=== PATIENT | male | born 1995 | race Two or more races ===

== ENCOUNTER 2020-09-15 13:49 | Emergency (ER) | payer SELFPAY ==
[2020-09-15 14:02] VITALS: BP 129/84; PULSE 95; RESP 16; TEMP 36.9; O2SAT 97; BMI 30.9
--- NOTE | 2020-09-15 15:50 | ED.EYEPROB ---
HPI - Eye Problem General Chief complaint: Eye Problems Stated complaint: eye pain Time Seen by Provider: 09/15/20 15:21 Source: patient Mode of arrival: ambulatory Limitations: no limitations History of Present Illness HPI Narrative: Patient here with right lower eyelid swelling and pain with redness for about 2-3 weeks. No vision changes. He has had some intermittent drainage in the eye. Related Data Previous Rx's Medication Instructions Recorded doxycycline monohydrate 100 mg 100 mg PO BID #14 tab 09/15/20 tablet Allergies Allergy/AdvReac Type Severity Reaction Status Date / Time No Known Allergies Allergy Unverified 11/05/19 16:17 Review of Systems Review of Systems: Yes all other systems are reviewed and are negative Constitutional: Constitutional: Reports no additional constitutional complaints, Denies body ache(s), Denies chills, Denies fever(s), Denies headache(s) and Denies weakness Eyes: Eyes: Reports no additional eye complaints, Denies change in vision, Reports eye discharge, Denies eye pain and Denies photophobia Comments: eyelid swelling ENT: Reports system reviewed and no additional complaints, except as documented, Denies dizziness, Denies headache(s), Denies nasal congestion, Denies nasal discharge and Denies neck pain Cardiovascular: Cardiovascular: Reports no additional cardiovascular complaints, Denies chest pain, Denies leg edema and Denies dyspnea Respiratory: Respiratory: Reports no additional respiratory complaints, Denies cough and Denies dyspnea Gastrointestinal: Gastrointestinal: Reports no additional gastrointestinal complaints, Denies abdominal pain, Denies diarrhea, Denies nausea and Denies vomiting Genitourinary: Genitourinary: Denies urinary incontinence Musculoskeletal: Musculoskeletal: Reports no additional musculoskeletal complaints, Denies back pain, Denies arthralgias, Denies joint swelling, Denies neck pain, Denies numbness and Denies tingling Integumentary/Breasts: Skin/Breast: Reports system reviewed and no additional complaints, except as docu and Denies rash Neurologic: Reports system reviewed and no additional complaints, except as documented, Denies Abnormal speech present, Denies dizziness, Denies headache(s), Denies numbness, Denies tingling and Denies weakness PMFSH Past Medical History Attestation statement: The following information was validated with the patient. Source: old records reviewed and nursing notes reviewed Medical History No known health problems Social History Social History Advance Directives: No Advance Directives Information Provided: No Physical Exam Vital Signs: Vital Signs: Last Vital Signs Temp 98.4 F 09/15/20 14:02 Pulse 95 09/15/20 14:02 Resp 16 09/15/20 14:02 BP 129/84 09/15/20 14:02 Pulse Ox 97 09/15/20 14:02 Body Mass Index 30.9 Const: General: cooperative, healthy appearing, comfortable and no acute distress Orientation/consciousness: patient oriented x3 Limitations: no limitations HENMT: Head: Yes normal to inspection Ears: hearing grossly normal bilaterally General nose exam: Normal external nose present Face and sinus: Yes normal facial exam Mouth: Normal oral and palatal mucosa present Throat: Yes posterior oropharynx normal Eyes: General: appearance normal, both eyes and all related structures Visual Cheung: normal visual cheung by confrontation Alignment and Position: alignment normal Periorbital: periorbital findings normal Eyelids: Yes eyelid abnormality (To the R lower eyelid- internal stye with pointing/swelling/tende) Conjunctivae: conjunctival abnormal (mild injection right ) Sclerae: sclerae normal Corneas: corneas normal Pupils: Equal, round and reactive pupils present EOM: EOMs intact bilaterally Direct Ophthalmoscopy: normal light reflex, no photophobia and No photophobia Neck: Neck: Yes normal visual inspection Chest: Chest palpation & inspection: normal inspection of the chest Resp: Effort & Inspection: normal respiratory effort Auscultation: clear to auscultation bilaterally Cardio: Rate: regular rate Rhythm: regular rhythm Peripheral pulses: Peripheral pulses 2+ throughout GI: Inspection: Yes normal to inspection Palpation (GI): Soft to palpation and nontender Auscultation: normal bowel sounds Back/Spine/Pelvis: Thoracic/Lumbar Spine: thoracic and lumbar spine normal to inspection Skin: General skin exam: no rashes or lesions noted Neuro: General: patient oriented x3, no focal motor deficits and normal sensation to monofilament Cranial nerves: Yes Equal, round and reactive pupils present Cognition (Neuro): normal cognition Speech: No Abnormal speech present Gait exam (Neuro): Normal gait present Motor exam (neuro): 5/5 motor strength present throughout Extrem: General: Yes normal to inspection Course Course Course Narrative: R internal stye. Normal eye exam. A 18g needle was used to peres the stye with drainage expressed. Will start antibiotic ointment, oral antibiotics Recommended warm compresses and massage. Reviewed worrisome signs and symptoms and when to return to the emergency department. Comfortable discharge home. MDM - Eye Problem Medical Records Attestation: I reviewed the patient's medical records. Lab Data Attestation: I reviewed the patient's lab results. 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 You may call first to double check the quiroga Prescriptions: New doxycycline monohydrate 100 mg tablet 100 mg PO BID Qty: 14 RF: 0 Referrals: Physician,None [Primary Care Provider] - 2 days Interventions: ED Discharge Assessment Last Done: 09/15/20 16:27 Discharge Date/Time: 09/15/20 16:28
[2020-09-15] MEDS: Erythromycin Base 0.5% Oph Oin 1 GM TUBE 1 CM EYE-RIGHT ×2 (16:24→16:25)
== END 2020-09-15 16:28 | disposition home or self-care (01) ==
PROVIDERS: Emergency Provider Emergency Medicine
DX: H00.012 Hordeolum externum right lower eyelid (principal); Z79.899 Other long term (current) drug therapy
CPT/HCPCS: 99283

== ENCOUNTER 2021-04-11 13:14 | Emergency (ER) | payer OTHER, SELFPAY ==
--- NOTE | ~2021-04-11 | XR_ITS ---
EXAMINATION: BILATERAL HAND AND RIGHT KNEE. CLINICAL INFORMATION: Pain, swelling after bowling. Finger pain. COMPARISON: None TECHNIQUE: 3 views each hand. Right knee 4 views. FINDINGS: Right knee: The tricompartment joint space is maintained normal. No bony erosive changes or loose bodies. There is mild suprapatellar joint effusion. No acute fracture or dislocation seen. Right hand: There is no visible acute fracture, dislocation or subluxation seen. Especially there is no abnormality involving the second digit distal phalanx. Left hand: No visible acute fracture, dislocation or subluxation. Especially as no abnormality involving the distal phalanx fourth digit. The soft tissues are normal. XR/XR hand RT min 3V IMPRESSION: Unremarkable bilateral hand exam. Unremarkable right knee exam.
--- NOTE | ~2021-04-11 | XR_ITS ---
EXAMINATION: BILATERAL HAND AND RIGHT KNEE. CLINICAL INFORMATION: Pain, swelling after bowling. Finger pain. COMPARISON: None TECHNIQUE: 3 views each hand. Right knee 4 views. FINDINGS: Right knee: The tricompartment joint space is maintained normal. No bony erosive changes or loose bodies. There is mild suprapatellar joint effusion. No acute fracture or dislocation seen. Right hand: There is no visible acute fracture, dislocation or subluxation seen. Especially there is no abnormality involving the second digit distal phalanx. Left hand: No visible acute fracture, dislocation or subluxation. Especially as no abnormality involving the distal phalanx fourth digit. The soft tissues are normal. XR/XR hand LT min 3V IMPRESSION: Unremarkable bilateral hand exam. Unremarkable right knee exam.
--- NOTE | ~2021-04-11 | XR_ITS ---
EXAMINATION: BILATERAL HAND AND RIGHT KNEE. CLINICAL INFORMATION: Pain, swelling after bowling. Finger pain. COMPARISON: None TECHNIQUE: 3 views each hand. Right knee 4 views. FINDINGS: Right knee: The tricompartment joint space is maintained normal. No bony erosive changes or loose bodies. There is mild suprapatellar joint effusion. No acute fracture or dislocation seen. Right hand: There is no visible acute fracture, dislocation or subluxation seen. Especially there is no abnormality involving the second digit distal phalanx. Left hand: No visible acute fracture, dislocation or subluxation. Especially as no abnormality involving the distal phalanx fourth digit. The soft tissues are normal. XR/XR knee RT 4V IMPRESSION: Unremarkable bilateral hand exam. Unremarkable right knee exam.
[2021-04-11 14:23] VITALS: BP 138/84; PULSE 85; RESP 18; TEMP 36.9; O2SAT 98; BMI 29.7
[2021-04-11 14:40] LABS: Hematocrit 44.4 % (42.0-52.0); Hemoglobin 15.7 g/dl (14.0-18.0); Mean Corpuscular HGB Conc 35.4 g/dl (31.0-36.0); Mean Corpuscular Hemoglobin 31.2 pg (27.0-33.0); Mean Corpuscular Volume 88.1 fL (80.0-98.0); Mean Platelet Volume 8.8 fL (9.4-12.4); Platelet Count 153 X10*3/uL (160-400); Red Blood Count 5.04 X10*6/uL (4.60-5.80); Red Cell Distribution Width 12.2 % (11.0-16.0)
[2021-04-11 15:07] LABS: Anion Gap 9 (12-20); Blood Urea Nitrogen 12 mg/dL (9-16); Calcium 9.1 mg/dL (8.4-10.2); Carbon Dioxide 28 mmol/L (22-29); Chloride 106 mmol/L (96-108); Estimated Glomerular Filt Rate > 60; Glucose Random 107 mg/dL (60-115); Potassium 4.2 mmol/L (3.3-5.1); Sodium 139 mmol/L (135-145)
--- NOTE | 2021-04-11 15:53 | ED.GENADULT ---
HPI - General Adult General Chief complaint: Extremity Problem Stated complaint: Swollen Fingers Time Seen by Provider: 04/11/21 15:03 Source: patient Mode of arrival: ambulatory Limitations: no limitations History of Present Illness HPI narrative: Patient is a 25 year old male presenting to the emergency department today with swelling and pain to the right index finger, left ring finger, and right knee. Patient states that his right knee always bothers him as he had a previous fracture in it. Patient states that he isn't sure what happened to his fingers but they are swollen and hurt. Patient denies any dizziness, lightheadedness, abdominal pain, nausea, vomiting, fever, chills, blurry vision, double vision, loss of vision, chest pain, difficulty breathing, shortness of breath, back pain, night sweats, pain with urination, increased urinary frequency, increased urinary urgency, blood in his urine or stool, syncope or a near syncopal episode, recent trauma or falls, bowel incontinence, bladder incontinence, bowel retention, bladder retention, or any other complaints at this time. Onset (ago): day(s) Related Data Previous Rx's Medication Instructions Recorded doxycycline monohydrate 100 mg 100 mg PO BID #14 tab 09/15/20 tablet doxycycline hyclate 100 mg capsule 100 mg PO BID 7 Days #14 cap 04/11/21 Allergies Allergy/AdvReac Type Severity Reaction Status Date / Time No Known Allergies Allergy Unverified 11/05/19 16:17 Review of Systems Constitutional: Constitutional: Reports no additional constitutional complaints, Denies chills, Denies fever(s) and Denies night sweats Eyes: Eyes: Reports no additional eye complaints, Denies blurry vision, Denies change in vision, Denies diplopia, Denies eye discharge, Denies loss of vision and Denies eye pain ENT: Denies dizziness Cardiovascular: Cardiovascular: Reports no additional cardiovascular complaints, Denies chest pain, Denies lightheadedness, Denies Loss of Consciousness and Denies dyspnea Respiratory: Respiratory: Reports no additional respiratory complaints and Denies dyspnea Gastrointestinal: Gastrointestinal: Reports no additional gastrointestinal complaints, Denies abdominal pain, Denies melena, Denies hematochezia, Denies change in bowel habits and Denies change in stool character Genitourinary: Genitourinary: Reports no additional male genitourinary complaints, Denies hematuria, Denies oliguria, Denies difficulty urinating, Denies dysuria, Denies urinary frequency, Denies urinary hesitancy, Denies urinary incontinence and Denies urinary urgency Musculoskeletal: Musculoskeletal: Reports no additional musculoskeletal complaints, Denies numbness and Denies tingling Integumentary/Breasts: Comments: swelling to the right index finger and left ring finger Neurologic: Denies dizziness, Denies loss of vision, Denies numbness and Denies tingling Psychiatric: Psychiatric: Reports no additional psychiatric complaints Endocrine: Endocrine: Reports no additional endocrine complaints Hematologic/Lymphatic: Hematologic/Lymphatic: Reports no additional hematologic/lymphatic complaints Allergic/Immunologic: Allergic/Immunologic: Reports no additional allergic/immunologic complaints PMFSH Past Medical History Attestation statement: The following information was validated with the patient. Source: old records reviewed Medical History No known health problems Social History Social History Advance Directives: No Advance Directives Information Provided: No Physical Exam ED Vital Signs: Vital Signs - 24 hr 04/11/21 14:23 Temperature 98.4 F Pulse Rate 85 Respiratory Rate 18 Blood Pressure 138/84 Pulse Oximetry 98 BMI result Body Mass Index 29.7 Const General: cooperative, no acute distress, alert and awake Nutritional Appearance: well nourished Orientation/consciousness: patient oriented x3 Limitations: no limitations [facility] Head: Yes normal to inspection and Yes atraumatic Ears: hearing grossly normal bilaterally and external ears normal General nose exam: Normal external nose present, no nasal discharge noted and no epistaxis Face and sinus: Yes normal facial exam, No abrasion and No laceration Mouth: Normal oral and palatal mucosa present, no drooling and no muffled voice Eyes General: appearance normal, both eyes and all related structures Periorbital: periorbital findings normal Eyelids: Yes eyelids normal Conjunctivae: conjunctivae normal Pupils: Equal, round and reactive pupils present EOM: EOMs intact bilaterally Neck Neck: Yes normal visual inspection, Yes full ROM and Yes no lymphadenopathy Chest Chest palpation & inspection: normal inspection of the chest Resp Effort & Inspection: normal respiratory effort and able to speak in complete sentences GI Inspection: Yes normal to inspection Skin Other: right index finger swelling and erythema with small ulcerated area consistent with MRSA Neuro General: patient oriented x3 and moves all extremities Cranial nerves: Yes Equal, round and reactive pupils present Cognition (Neuro): normal cognition Motor exam (neuro): 5/5 motor strength present throughout Sensory Exam: Normal double simultaneous stimulation for sensation Coordination: [id number] test normal Extrem General: Yes normal to inspection, Yes full ROM and Yes capillary refill normal Psych Appearance: grossly normal Mental Status: mental status grossly normal Affect: normal affect Attitude: cooperative Thought process: Normal thought process present Thought content: Normal thought content present Insight: Good insight present (Psych) Medical Decision Making MDM Narrative Medical decision making narrative: Patient is a 25 year old male presenting to the emergency department today with right index finger pain and swelling, left ring finger swelling, and chronic right knee pain. Patient's physical exam showed swelling to the right index finger with a small ulcerated area that is consistent with possible MRSA. Patient's left ring finger and right knee were both normal on exam. Patient's blood work showed an elevated WBC count but was otherwise unremarkable. Patient's bilateral hand and right knee x-ray showed no acute process. I explained my physical exam findings as well as all test results to the patient. I answered all questions asked by the patient. I stressed the importance of the patient taking his medication as prescribed. I stressed the importance of the patient following up with his primary care provider. I stressed the importance of the patient returning to the emergency department immediately if his symptoms were to worsen or if he were to develop any dizziness, shortness of breath, difficulty breathing, chest pain, blurry vision, loss of vision, nausea, vomiting, abdominal pain, fever, chills, back pain, or any other complaints. Patient verbalized agreement and understanding with this treatment plan and discharge. Differential Diagnosis Differential Diagnosis: cellulitis, MRSA Medical Records Medical records reviewed: Yes I reviewed the patient's medical records. Lab Data Lab results reviewed: Yes I reviewed the patient's lab results. Result diagrams: 04/11/21 14:34 04/11/21 14:34 Labs: Lab Results 04/11/21 04/11/21 Range/Units 14:34 14:34 WBC 14.0 H (4.8-10.8) X10*3/uL RBC 5.04 (4.60-5.80) X10*6/uL Hgb 15.7 (14.0-18.0) g/dl Hct 44.4 (42.0-52.0) % MCV 88.1 (80.0-98.0) fL MCH 31.2 (27.0-33.0) pg MCHC 35.4 (31.0-36.0) g/dl RDW 12.2 (11.0-16.0) % Plt Count 153 L (160-400) X10*3/uL MPV 8.8 L (9.4-12.4) fL Absolute Nucleated RBC 0.000 (0.0-0.012) X10*3/uL Nucleated RBC % (auto) 0.0 (0.0-0.2) /100WBC Sodium 139 (135-145) mmol/L Potassium 4.2 (3.3-5.1) mmol/L Chloride 106 (96-108) mmol/L Carbon Dioxide 28 (22-29) mmol/L Anion Gap 9 L (12-20) BUN 12 (9-16) mg/dL Creatinine 0.91 (0.5-1.4) mg/dL Estim Creat Clear Calc 153.0 Estimated GFR > 60 Random Glucose 107 (60-115) mg/dL Calcium 9.1 (8.4-10.2) mg/dL Imaging Data Bilateral hand and right knee x-ray: Attestation: I personally reviewed and interpreted this imaging study as follows: Radiologist's impression: EXAMINATION: BILATERAL HAND AND RIGHT KNEE. CLINICAL INFORMATION: Pain, swelling after bowling. Finger pain. COMPARISON: None? TECHNIQUE: 3 views each hand. Right knee 4 views.? FINDINGS: Right knee: The tricompartment joint space is maintained normal. No bony erosive changes or loose bodies. There is mild suprapatellar joint effusion. No acute fracture or dislocation seen. Right hand: There is no visible acute fracture, dislocation or subluxation seen. Especially there is no abnormality involving the second digit distal phalanx. Left hand: No visible acute fracture, dislocation or subluxation. Especially as no abnormality involving the distal phalanx fourth digit. The soft tissues are normal. XR/XR hand RT min 3V IMPRESSION: ? Unremarkable bilateral hand exam. ? Unremarkable right knee exam. ? Dictated By: Juan Sheikh MD Signed By: Electronically signed by Juan Sheikh MD 04/11/21 7115 Discharge Plan Discharge Clinical Impression: Cellulitis Patient Disposition: Home, Self-Care Instructions: Cellulitis (DC) Additional Instructions: Follow up with your primary care provider. Return to the emergency department immediately if your symptoms worsen or if you develop any dizziness, shortness of breath, difficulty breathing, chest pain, blurry vision, loss of vision, nausea, vomiting, abdominal pain, fever, chills, back pain, or any other complaints. If your benefits do not cover the medication, give your pharmacist this information for a discounted medication quiroga: BIN: [id number] PCN: [id number] GROUP: [id number] Prescriptions: New doxycycline hyclate 100 mg capsule 100 mg PO BID 7 Days Qty: 14 0RF No Action doxycycline monohydrate 100 mg tablet 100 mg PO BID Qty: 14 0RF Referrals: Luis Alfredo Chappell III, MD [Primary Care Provider] - 2 days Interventions: ED Discharge Assessment Last Done: 04/11/21 16:16 Discharge Date/Time: 04/11/21 16:16 Print Language: Spanish
== END 2021-04-11 16:16 | disposition home or self-care (01) ==
PROVIDERS: Emergency Provider Emergency Medicine; PCP Internal Medicine
DX: L03.011 Cellulitis of right finger (principal); M79.644 Pain in right finger(s); M79.645 Pain in left finger(s); M25.561 Pain in right knee
CPT/HCPCS: 36415; 73130; 73564; 80048; 85027; 99283

== ENCOUNTER 2021-04-18 13:41 | Emergency (ER) | payer OTHER, SELFPAY ==
--- NOTE | ~2021-04-18 | MR_ITS ---
EXAMINATION: MR KNEE WITHOUT CONTRAST, RIGHT CLINICAL INFORMATION: Possible quadriceps injury. Pain and swelling. COMPARISON: Radiographs of the knee from 04/11/2021 TECHNIQUE: MRI of the knee without contrast was performed using routine sequences on a high-field 1.5 Ml scanner. FINDINGS: MENISCI: Medial Meniscus: There appears to be a very small partial-thickness tear along the undersurface of the mid third of the posterior horn (images 10-12, series 4). No large tear defect or meniscal flap. The root ligaments are normal. Lateral Meniscus: Intact. LIGAMENTS: Cruciate: Anterior and posterior cruciate ligaments are normal. Collateral: At the medial knee, the tibial collateral ligament is intact. At the lateral knee, the iliotibial band, fibular collateral ligament, biceps femoris tendon and popliteus tendon are intact. EXTENSOR MECHANISM: The distal quadriceps tendon is normal. The patellar tendon and patellar retinacula are intact. A septated synovial or ganglion cyst of the anterior joint capsule protrudes into Hoffa's fat pad. This cyst measures approximately 3.7 x 1.2 x 2 cm. There is soft tissue edema around the knee, and mild edema is present within the vastus medialis and lateralis muscles. Mild muscle strains are suspected. ARTICULAR CARTILAGE/BONE: Patellofemoral Compartment: Patella is properly positioned within the trochlear groove. Articular cartilage of the patella and femoral trochlea is maintained. Medial and Lateral Compartments: The articular cartilage is maintained. There is a faintly visible bone bruise of the posterolateral tibia without fracture. No evidence of ligament tear in the posterolateral corner of the knee. JOINT FLUID, BURSAE AND OTHER: Large knee joint effusion is present. Again, there is soft tissue edema around the knee, including mild edema of the popliteus muscle around its myotendinous junction. No popliteus muscle tear. The popliteal sheath is distended with fluid. MR/MR knee RT wo con IMPRESSION: * Minimal bone bruise of the posterolateral tibia. No fracture. * Very small partial-thickness undersurface tear in the mid third of the posterior horn of the medial meniscus. No evidence of cruciate or collateral ligament tear. * Large knee joint effusion and septated ganglion cyst of the anterior joint capsule that protrudes into Hoffa's fat pad. * Soft tissue edema surrounds the knee. The findings of mild edema in the vastus medialis and lateralis muscles and popliteus muscle suggest possibility of recent mild muscle strains.
[2021-04-18 15:31] VITALS: BP 140/87; PULSE 90; RESP 18; TEMP 37.4; O2SAT 98; BMI 29.7
--- NOTE | 2021-04-18 15:31 | ED.EXTPRO ---
HPI - Extremity Problem General Chief complaint: Extremity Problem Stated complaint: swollen knee Time Seen by Provider: 04/18/21 15:30 Source: patient Mode of arrival: ambulatory Limitations: no limitations History of Present Illness HPI Narrative: Patient is a 25 year old male presenting to the emergency department today with a right leg injury. Patient states that his right leg has been bothering him for the last few weeks and that he is having difficulty bending his right knee. Patient states he does not know what happened to his knee and why it is the way it is. Patient denies any dizziness, lightheadedness, abdominal pain, nausea, vomiting, fever, chills, blurry vision, double vision, loss of vision, chest pain, difficulty breathing, shortness of breath, back pain, night sweats, pain with urination, increased urinary frequency, increased urinary urgency, blood in his urine or stool, syncope or a near syncopal episode, recent trauma or falls, bowel incontinence, bladder incontinence, bowel retention, bladder retention, or any other complaints at this time. MD Complaint: extremity pain Onset (ago): week(s) (2) Location: right and knee Related Data Previous Rx's Medication Instructions Recorded doxycycline monohydrate 100 mg 100 mg PO BID #14 tab 09/15/20 tablet doxycycline hyclate 100 mg capsule 100 mg PO BID 7 Days #14 cap 04/11/21 cyclobenzaprine 10 mg tablet 10 mg PO TID PRN 7 Days #20 tab 04/18/21 Allergies Allergy/AdvReac Type Severity Reaction Status Date / Time No Known Allergies Allergy Unverified 11/05/19 16:17 Review of Systems Constitutional: Constitutional: Reports no additional constitutional complaints, Denies chills, Denies fever(s) and Denies night sweats Eyes: Eyes: Reports no additional eye complaints, Denies blurry vision, Denies change in vision, Denies diplopia, Denies eye discharge, Denies loss of vision and Denies eye pain ENT: Denies dizziness Cardiovascular: Cardiovascular: Reports no additional cardiovascular complaints, Denies chest pain, Denies lightheadedness, Denies Loss of Consciousness and Denies dyspnea Respiratory: Respiratory: Reports no additional respiratory complaints and Denies dyspnea Gastrointestinal: Gastrointestinal: Reports no additional gastrointestinal complaints, Denies abdominal pain, Denies melena, Denies hematochezia, Denies change in bowel habits and Denies change in stool character Genitourinary: Genitourinary: Reports no additional male genitourinary complaints, Denies hematuria, Denies oliguria, Denies difficulty urinating, Denies dysuria, Denies urinary frequency, Denies urinary hesitancy, Denies urinary incontinence and Denies urinary urgency Musculoskeletal: Musculoskeletal: Reports no additional musculoskeletal complaints, Denies numbness and Denies tingling Comments: right knee pain Neurologic: Denies dizziness, Denies loss of vision, Denies numbness and Denies tingling Psychiatric: Psychiatric: Reports no additional psychiatric complaints Endocrine: Endocrine: Reports no additional endocrine complaints Hematologic/Lymphatic: Hematologic/Lymphatic: Reports no additional hematologic/lymphatic complaints Allergic/Immunologic: Allergic/Immunologic: Reports no additional allergic/immunologic complaints PMFSH Past Medical History Attestation statement: The following information was validated with the patient. Source: old records reviewed Medical History No known health problems Social History Social History Advance Directives: No Advance Directives Information Provided: No Physical Exam Vital Signs: Vital Signs: Last Vital Signs Temp 99.3 F 04/18/21 15:31 Pulse 90 04/18/21 15:31 Resp 18 04/18/21 15:31 BP 140/87 H 04/18/21 15:31 Pulse Ox 98 04/18/21 15:31 BMI result Body Mass Index 29.7 Const: General: cooperative, no acute distress, alert and awake Nutritional Appearance: well nourished Orientation/consciousness: patient oriented x3 Limitations: no limitations HENMT: Head: Yes normal to inspection and Yes atraumatic Ears: hearing grossly normal bilaterally and external ears normal General nose exam: Normal external nose present, no nasal discharge noted and no epistaxis Face and sinus: Yes normal facial exam, No abrasion and No laceration Mouth: Normal oral and palatal mucosa present, no drooling and no muffled voice Eyes: General: appearance normal, both eyes and all related structures Periorbital: periorbital findings normal Eyelids: Yes eyelids normal Conjunctivae: conjunctivae normal Pupils: Equal, round and reactive pupils present EOM: EOMs intact bilaterally Neck: Neck: Yes normal visual inspection, Yes full ROM and Yes no lymphadenopathy Chest: Chest palpation & inspection: normal inspection of the chest Resp: Effort & Inspection: normal respiratory effort and able to speak in complete sentences Auscultation: clear to auscultation bilaterally Cardio: Rate: regular rate Rhythm: regular rhythm GI: Inspection: Yes normal to inspection Neuro: General: patient oriented x3 and moves all extremities Cranial nerves: Yes Equal, round and reactive pupils present Cognition (Neuro): normal cognition Motor exam (neuro): 5/5 motor strength present throughout Sensory Exam: Normal double simultaneous stimulation for sensation Coordination: [id number] test normal Extrem: Other: effusion present just superior and medial of the right knee with limited ROM secondary to pain General: Yes capillary refill normal Psych: Appearance: grossly normal Mental Status: mental status grossly normal Affect: normal affect Attitude: cooperative Thought process: Normal thought process present Thought content: Normal thought content present Insight: Good insight present (Psych) Course Consultations Consultation #1: Orthopedic PA yardage control operator forming Lana recommended getting an MRI of the right knee without contrast. Time: 16:16 MDM - Extremity (Nontraumatic) MDM Narrative Medical decision making narrative: Patient is a 25 year old male presenting to the emergency department today with right knee pain. Patient's physical exam showed an effusion just superior and medial of the right knee with intact ROM and PMS. Ortho evaluated the patient and recommended an MRI. MRI showed a large joint effusion, cyst in anterior infrapatellar fat pad and posterior to tibia, muscle edema - anterior compartment > posterior with no fracture or bone bruise seen. I explained my physical exam findings as well as all test results to the patient. I answered all questions asked by the patient. Patient was given crutches, per his request, to help with ambulation. I stressed the importance of the patient taking his medication as prescribed. I stressed the importance of the patient following up with his primary care provider and orthopedics. I stressed the importance of the patient returning to the emergency department immediately if his symptoms were to worsen or if he were to develop any dizziness, shortness of breath, difficulty breathing, chest pain, blurry vision, loss of vision, nausea, vomiting, abdominal pain, fever, chills, back pain, or any other complaints. Patient verbalized agreement and understanding with this treatment plan and discharge. Differential Diagnosis Differential diagnosis: Unlikely cellulitis (joint effusion, ruptured quad) Medical Records Attestation: I reviewed the patient's medical records. Imaging Data Right leg MRI: Attestation: I personally reviewed and interpreted this imaging study as follows: Radiologist's impression: Only radiologist prelimanary report was given due to a technical issue on the part of [facility]. Prelim report was done by Dr. Gerald Rodriguez at 6:14pm and reads: Large joint effusion. Cyst in anterior infrapatellar fat pad and posterior to tibia. Muscle edema - anterior compartment > posterior. No fracture or bone bruise. Discharge Plan Discharge Clinical Impression: Leg injury Patient Disposition: Home, Self-Care Instructions: Leg Pain (ED) Additional Instructions: Call to schedule a follow up appointment with an Orthopedic provider. Follow up with your primary care provider. Return to the emergency department immediately if your symptoms worsen or if you develop any dizziness, shortness of breath, difficulty breathing, chest pain, blurry vision, loss of vision, nausea, vomiting, abdominal pain, fever, chills, back pain, or any other complaints. Prescriptions: New cyclobenzaprine 10 mg tablet 10 mg PO TID PRN (Reason: muscle spasm) 7 Days Qty: 20 0RF No Action doxycycline monohydrate 100 mg tablet 100 mg PO BID Qty: 14 0RF doxycycline hyclate 100 mg capsule 100 mg PO BID 7 Days Qty: 14 0RF Referrals: Jian Ureña MD [Physician] - 2 days Stand Alone Forms: Work/School Release Print Language: Danish
== END 2021-04-18 20:18 | disposition home or self-care (01) ==
PROVIDERS: Emergency Provider Emergency Medicine
DX: M25.461 Effusion, right knee (principal); M25.561 Pain in right knee; Z79.899 Other long term (current) drug therapy
CPT/HCPCS: 73721; 99283; 99285